=== PATIENT | female | born 1960 | race Caucasian/White ===

== ENCOUNTER → 2019-12-18 09:18 | Outpatient (BNVA) | payer BC, SELFPAY | PROVIDERS: Family Provider Nurse Practitioner Family; PCP Nurse Practitioner Family; Visit Provider Registered Nurse | DX: E03.9 Hypothyroidism, unspecified (principal); Z12.31 Encounter for screening mammogram for malignant neoplasm of breast; Z00.00 Encounter for general adult medical examination without abnormal findings; Z12.11 Encounter for screening for malignant neoplasm of colon | CPT/HCPCS: 84443 ==

== ENCOUNTER → 2020-12-25 08:31 | Outpatient (BNVA) | payer OTHER, SELFPAY | PROVIDERS: Family Provider Nurse Practitioner Family; PCP Nurse Practitioner Family; Visit Provider Registered Nurse | DX: Z00.00 Encounter for general adult medical examination without abnormal findings (principal); E03.9 Hypothyroidism, unspecified; E05.90 Thyrotoxicosis, unspecified without thyrotoxic crisis or storm; Z12.31 Encounter for screening mammogram for malignant neoplasm of breast; Z68.31 Body mass index [BMI] 31.0-31.9, adult; E66.09 Other obesity due to excess calories; Z12.11 Encounter for screening for malignant neoplasm of colon | CPT/HCPCS: 84443; 85025 ==

== ENCOUNTER 2021-02-20 06:47 | Outpatient (CLI) | payer OTHER, SELFPAY ==
[2021-02-20 07:30] VITALS: BP 129/76; PULSE 85; RESP 16; TEMP 36.7; O2SAT 95
[2021-02-20 07:49] VITALS: BP 118/72; PULSE 84; RESP 16; O2SAT 96
[2021-02-20 08:39] VITALS: BP 120/64; PULSE 88; RESP 14; TEMP 36.8; O2SAT 93
== END 2021-02-20 06:48 | disposition home or self-care (01) ==
LOC: OPS 06:50
PROVIDERS: PCP Nurse Practitioner Family; Visit Provider Nurse Practitioner Family
DX: U07.1 COVID-19 (principal)
CPT/HCPCS: 96365

== ENCOUNTER → 2021-12-30 08:38 | Outpatient (BNVA) | payer OTHER, SELFPAY | PROVIDERS: PCP Registered Nurse; Visit Provider Registered Nurse | DX: E03.9 Hypothyroidism, unspecified (principal) | CPT/HCPCS: 84443 ==

== ENCOUNTER 2022-11-02 09:34 | Outpatient (CLI) | payer OTHER, SELFPAY ==
--- NOTE | 2022-11-02 09:39 | XR_ITS ---
WS: [id number] Exam: XR shoulder RT min 2V* [id number] Date/Time of Exam: 11/02/2022 9:59 AM Reason For Exam: S49.91XA - Unspecified injury of right shoulder and upper... Comparison 10/12/2016. No fracture or dislocation. Mild DJD at the glenohumeral joint and the AC joint. Normal soft tissues. XR/XR shoulder RT min 2V* [id number] IMPRESSION: 1. Degenerative changes. No fracture or other significant finding.
== END 2022-11-02 09:35 | disposition home or self-care (01) ==
LOC: RAD 09:39
PROVIDERS: PCP Registered Nurse; Visit Provider Registered Nurse
DX: S49.91XA Unspecified injury of right shoulder and upper arm, initial encounter (principal); X58.XXXA Exposure to other specified factors, initial encounter
CPT/HCPCS: 73030

== ENCOUNTER 2022-11-19 14:22 | Outpatient (CLI) | payer OTHER, SELFPAY ==
--- NOTE | 2022-11-19 15:15 | MR_ITS ---
WS: [id number] MRI RIGHT SHOULDER HISTORY: S49.91XA - Unspecified injury of right shoulder and upper... COMPARISON: RIGHT shoulder radiograph 11/02/2022 TECHNIQUE: Multiplanar sequences of the shoulder joint are submitted. Moderate AC joint arthritis. AC joint is narrowed. Hypertrophic clavicular and acromial osteophytes. 3.4 mm clavicular osteophyte encroaches upon the supraspinatus. Very mild subacromial impingement. No loss acromion. Normal position of the biceps tendon. There is a split tear within the biceps tendon in the bicipital groove. Small amount of fluid in the subacromial and subdeltoid bursa. Moderate distal supraspinatus tendinop athy. No tear is identified. Mild supraspinatus atrophy. Otherwise the muscles are normal. No labral tear. No joint effusion. Mild degenerative osteophytic ridging around the humeral head. MR/MR shoulder RT wo con* [id number] IMPRESSION: 1. Moderate AC joint arthritis. 2. Distal clavicular osteophyte measures 3.4 mm encroaching upon the supraspin atus muscle and tendon. 3. Distal supraspinatus tendinopathy but no tear. 4. Very mild supraspinatus atrophy. 5. Split tear biceps tendon in the bicipital groove. 6. Mild subacromial impingement.
== END 2022-11-19 14:23 | disposition home or self-care (01) ==
PROVIDERS: PCP Registered Nurse; Visit Provider Registered Nurse
DX: S49.91XA Unspecified injury of right shoulder and upper arm, initial encounter (principal); X58.XXXA Exposure to other specified factors, initial encounter
CPT/HCPCS: 73221

== ENCOUNTER → 2023-03-28 09:44 | Outpatient (BNVA) | payer OTHER, SELFPAY | PROVIDERS: PCP Registered Nurse; Visit Provider Registered Nurse | DX: Z12.31 Encounter for screening mammogram for malignant neoplasm of breast (principal); Z12.11 Encounter for screening for malignant neoplasm of colon; E03.9 Hypothyroidism, unspecified; Z00.00 Encounter for general adult medical examination without abnormal findings; E66.09 Other obesity due to excess calories; Z68.31 Body mass index [BMI] 31.0-31.9, adult; Z71.85 Encounter for immunization safety counseling; Z71.3 Dietary counseling and surveillance | CPT/HCPCS: 80053; 80061; 82306; 82607; 83036; 84443; 85025 ==

== ENCOUNTER → 2023-08-24 09:25 | Outpatient (BNVA) | payer OTHER, SELFPAY | PROVIDERS: PCP Registered Nurse; Visit Provider Registered Nurse | DX: R68.89 Other general symptoms and signs (principal) | CPT/HCPCS: 87400 ==

== ENCOUNTER → 2024-03-21 08:18 | Outpatient (BNVA) | payer OTHER, SELFPAY | PROVIDERS: PCP Registered Nurse; Visit Provider Registered Nurse | DX: E03.9 Hypothyroidism, unspecified (principal) | CPT/HCPCS: 80053; 80061; 82306; 84443; 85025 ==

== ENCOUNTER 2024-12-09 05:00 | Outpatient (CLI) | payer BC, SELFPAY | END 2024-12-09 05:01 | LOC: SPT 01-08 11:35 | PROVIDERS: Visit Provider Nurse Practitioner | DX: Z46.89 Encounter for fitting and adjustment of other specified devices (principal); S52.591D Other fractures of lower end of right radius, subsequent encounter for closed fracture with routine healing; X58.XXXD Exposure to other specified factors, subsequent encounter | CPT/HCPCS: L3982 ==

== ENCOUNTER → 2024-12-24 15:01 | Outpatient (BNVA) | payer BC, SELFPAY | PROVIDERS: PCP Nurse Practitioner Family; Visit Provider Nurse Practitioner | DX: S52.571A Other intraarticular fracture of lower end of right radius, initial encounter for closed fracture (principal); S52.614A Nondisplaced fracture of right ulna styloid process, initial encounter for closed fracture; W19.XXXA Unspecified fall, initial encounter | CPT/HCPCS: 73110 ==

== ENCOUNTER → 2024-12-31 14:40 | Outpatient (BNVA) | payer BC, SELFPAY | PROVIDERS: PCP Nurse Practitioner Family; Visit Provider Nurse Practitioner | DX: S52.571D Other intraarticular fracture of lower end of right radius, subsequent encounter for closed fracture with routine healing (principal); S52.614D Nondisplaced fracture of right ulna styloid process, subsequent encounter for closed fracture with routine healing; X58.XXXD Exposure to other specified factors, subsequent encounter | CPT/HCPCS: 73110 ==

== ENCOUNTER → 2025-01-07 15:59 | Outpatient (BNVA) | payer MEDICARE, SELFPAY | PROVIDERS: PCP Registered Nurse; Visit Provider Nurse Practitioner | DX: S52.571A Other intraarticular fracture of lower end of right radius, initial encounter for closed fracture (principal); S52.614A Nondisplaced fracture of right ulna styloid process, initial encounter for closed fracture; X58.XXXA Exposure to other specified factors, initial encounter | CPT/HCPCS: 73110; 99024 ==

== ENCOUNTER → 2025-01-21 09:38 | Outpatient (BNVA) | payer MEDICARE, SELFPAY | PROVIDERS: Visit Provider Nurse Practitioner | DX: S52.614D Nondisplaced fracture of right ulna styloid process, subsequent encounter for closed fracture with routine healing (principal); S52.571D Other intraarticular fracture of lower end of right radius, subsequent encounter for closed fracture with routine healing; X58.XXXD Exposure to other specified factors, subsequent encounter | CPT/HCPCS: 73110 ==

== ENCOUNTER → 2025-02-18 10:27 | Outpatient (BNVA) | payer MEDICARE, SELFPAY | PROVIDERS: Visit Provider Nurse Practitioner | DX: S52.571D Other intraarticular fracture of lower end of right radius, subsequent encounter for closed fracture with routine healing (principal); S52.614D Nondisplaced fracture of right ulna styloid process, subsequent encounter for closed fracture with routine healing; X58.XXXD Exposure to other specified factors, subsequent encounter | CPT/HCPCS: 73110; 99024 ==

== ENCOUNTER → 2025-03-01 11:02 | Outpatient (BNVA) | payer MEDICARE, SELFPAY | PROVIDERS: PCP Registered Nurse; Visit Provider Registered Nurse | DX: E03.9 Hypothyroidism, unspecified (principal) | CPT/HCPCS: 80053; 80061; 84443; 85025 ==

== ENCOUNTER → 2025-03-15 08:43 | Outpatient (BNVA) | payer MEDICARE, SELFPAY | PROVIDERS: PCP Registered Nurse; Visit Provider Nurse Practitioner | DX: S52.614D Nondisplaced fracture of right ulna styloid process, subsequent encounter for closed fracture with routine healing (principal); S52.571D Other intraarticular fracture of lower end of right radius, subsequent encounter for closed fracture with routine healing; X58.XXXD Exposure to other specified factors, subsequent encounter | CPT/HCPCS: 73110; 99214 ==

== ENCOUNTER 2025-05-22 09:24 | Outpatient (CLI) | payer MEDICARE, SELFPAY ==
--- NOTE | 2025-05-22 09:40 | MM_ITS ---
WS: [id number] SCREENING DIGITAL BREAST TOMOSYNTHESIS MAMMOGRAM WITH CAD HISTORY: SCREENING COMPARISON: None available. Bilateral CC and MLO with tomosynthesis and synthetic mammography submitted. Computer aided detection analyzed. Breast composition: The breasts are heterogeneously dense, which may obscure small masses. Well-circumscribed high density mass in the anterior medial RIGHT breast at 2:00. This well-circumscribed mass measures 8 x 8 x 7 mm. No distortion or calcifications. There is an additional well-circumscribed high density mass in the anterior LEFT breast measuring 8 x 10 x 8 mm. This mass is lateral to the nipple near 3:00. No additional abnormalities. MM/MM [facility] BI tomosynthesis [id number] IMPRESSION: BI-RADS: 0 - Incomplete: Need additional imaging evaluation FOLLOW UP: Need Additional Imaging Recommendation: Bilateral breast ultrasound, limited.
== END 2025-05-22 09:25 | disposition home or self-care (01) ==
LOC: MOBLMAM 09:25
PROVIDERS: PCP Registered Nurse; Visit Provider Registered Nurse
DX: Z12.31 Encounter for screening mammogram for malignant neoplasm of breast (principal); R92.323 Mammographic fibroglandular density, bilateral breasts; R92.8 Other abnormal and inconclusive findings on diagnostic imaging of breast; N63.12 Unspecified lump in the right breast, upper inner quadrant; N63.11 Unspecified lump in the right breast, upper outer quadrant
CPT/HCPCS: 77063; 77067

== ENCOUNTER 2025-06-18 10:52 | Outpatient (CLI) | payer MEDICARE, SELFPAY ==
--- NOTE | 2025-06-18 11:00 | US_ITS ---
NOTE: Report was unsigned for reason: Ordering provider was edited. Original Signature date and time was: 06/18/2025 @ 1151 WS: [id number] ULTRASOUND BILATERAL BREAST, limited HISTORY: Bilateral masses identified on the screening mammogram of 05/22/2025. COMPARISON: Mammogram 05/22/2025. TECHNIQUE: 2-D and Doppler. RIGHT: Hypoechoic mass with slightly lobulated margins is identified at 2:00, 1 cm from the nipple. Mass measures 0.4 x 0.6 x 0.8 cm and corresponds to the mammographic abnormality. LEFT: Hypoechoic mass is well-circumscribed LEFT breast at 3:00, 1 cm from the nipple. No increased vascularity. Mass measures 0.7 x 0.6 x 0.8 cm. This mass corresponds to the mammographic abnormality in the LEFT breast. [facility] US/US breast BI limited* [id number] IMPRESSION: BI-RADS: 4- Suspicious Finding - Biopsy Should be Considered FOLLOW-UP: Biopsy Recommended Bilateral ultrasound-guided breast biopsies are recommended. Solid masses withi n each breast should undergo ultrasound-guided biopsy.
== END 2025-06-18 10:53 | disposition home or self-care (01) ==
LOC: RAD 10:55
PROVIDERS: PCP Registered Nurse; Visit Provider Registered Nurse
DX: R92.8 Other abnormal and inconclusive findings on diagnostic imaging of breast (principal); N63.41 Unspecified lump in right breast, subareolar
CPT/HCPCS: 76642